=== PATIENT | male | born 1960 | race Caucasian/White ===

== ENCOUNTER 2016-12-01 19:09 | Inpatient (IN) | payer OTHER ==
[~2016-12-01] VITALS: Ht 175.3 cm; Wt 103.3 kg
[~2016-12-01 19:09] MED LIST: ACTOS15 MG PO; AMBIEN10 MG PO; AMPHETAMINE SAL20 MG PO; ASPIR-LOW81 MG PO; ASPIRIN325 MG PO; ATORVASTATIN CA40 MG PO; AZITHROMYCIN500 M1 PO; BACLOFEN10 MG PO; BENTYL20 MG PO; BUSPAR10 MG PO; CEFTIN500 MG PO; CLONIDINE HCL0.1 MG PO; CLOPIDOGREL75 MG PO; COUMADIN PO; COUMADIN6 MG PO; COZAAR50 MG PO; Coumadin Protocol PO; DELTASONE20 M1 PO; DESYREL100 MG PO; DIGOX250 MCG PO; DIGOXIN250 MCG PO; ECONAZOLE NITRA15 GM TP; ENDOCET 5-3251 EACH PO; EXALGO16 MG PO; Exalgo PO; FENTANYL1 EAC3 TD; FENTANYL1 EAC4 TD; FLEXERIL10 MG PO; FLOVENT 11120 INHALA IH; FUROSEMIDE40 MG PO; Flagyl PO; Flora-Q,Risaquad PO; GABAPENTIN300 MG PO; GABAPENTIN600 MG PO; GEMFIBROZIL600 MG PO; Glucophage PO; HUMALOG; HUMALOG100 UNIT/2 SC; HYDROCHLOROTHIA25 MG PO; Hydrodiuril,Oretic,E PO; JANUMET XR 50-1 EACH PO; JANUVIA100 MG PO; K-Dur PO; KEPPRA500 MG PO; KETAMINE TP; Kadian PO; Keppra PO; LANOXIN,DIGIT0.25 MG PO; LANTUS 3 M100 UNITS1 SC; LASIX40 MG PO; LEVETIRACETAM500 MG PO; LEVETIRACETAM750 MG PO; LIPITOR40 MG PO; LOPID600 MG PO; LOPRESSOR100 M1 PO; LOPRESSOR50 MG PO; LORTAB 5-325 M1 EACH PO; LOSARTAN POTASS50 MG PO; LOVAZA1 GM PO; Lanoxin,Digitek PO; Lopressor PO; METOPROLOL SUC200 MG PO; MORPHINE SULFAT60 MG PO; NAPROSYN500 MG PO; NEURONTIN300 MG PO; NEURONTIN600 MG PO; NIASPAN500 MG PO; NOVOLOG PE100 UNITS/ SC; Neurontin PO; OXYCODONE HCL15 MG PO; OXYCODONE30 MG PO; OXYCONTIN60 MG PO; PANTOPRAZOLE SO40 MG PO; PLAVIX75 MG PO; POTASSIUM CHLO10 ME4 PO; PRILOSEC20 MG PO; PROTONIX40 MG PO; Plavix PO; Pradaxa PO; SPIRIVA1 INHALATI IH; TRICOR145 MG PO; Toprol XL PO; ULTRAM50 MG PO; VITAMIN D31000 UNIT PO; Vitamin D, Drisdol PO; WARFARIN SODIUM2 MG PO; XARELTO20 MG PO; Xanax PO; ZESTRIL20 MG PO; ZOCOR20 MG PO; ZOFRAN4 MG PO; Zocor PO; [UNRECOGNIZED DRUG - OTHER]; oxyCODONE PO
[2016-12-01 20:27] LABS: HEMATOCRIT 44.7 % (38.0-50.0); MCH 21.6 PG (29.0-34.0); MCHC 30.6 G/DL (30.0-36.0); MCV 70.6 FL (86-99); RBC DIS.WIDTH-CV 23.2 % (11.8-14.6); RBC DIS.WIDTH-SD 56.8 % (39-53)
[2016-12-01 20:44] LABS: TROP-I INTERPRETATION NEGATIVE; TROPONIN-I < 0.01 ng/mL (0.0-0.30)
[2016-12-01 20:59] LABS: RED BLOOD COUNT 6.33 M/uL (4.00-5.50)
[2016-12-01 21:09] LABS: HEMATOLOGY COMMENT 1 SMEAR COMPATIBLE; MEAN PLAT.VOLUME 9.3 uM^3 (9.0-12.4); PLATELET COUNT 200 K/uL (156-360)
[2016-12-01 21:55] LABS: CHLORIDE 101 mEq/L (99-109); SODIUM 142 mEq/L (136-147)
[2016-12-01 21:57] LABS: GLUCOSE 135 mg/dL (70-99)
[2016-12-01 21:58] LABS: ANION GAP 13 MEQ/L (2-14)
[2016-12-01 22:01] LABS: GFR ESTIMATE (CALCULATED) > 59 mL/min/
[2016-12-01 22:02] LABS: UREA NITROGEN (BUN) 14 mg/dL (9-23)
[2016-12-01 22:30] LABS: TOTAL BILIRUBIN 1.2 mg/dL (0.0-1.0)
[2016-12-01 22:31] LABS: ALKALINE PHOSPHATASE 88 IU/L (3-129)
[2016-12-01 22:34] LABS: DIRECT BILIRUBIN 0.4 mg/dL (0.0-0.3)
[2016-12-01 22:35] LABS: D-DIMER ELISA 0.33 mg/L FEU (< 0.57)
[2016-12-01 22:53] LABS: HEMATOCRIT 42.9 % (38.0-50.0); MCH 21.5 PG (29.0-34.0); MCHC 30.3 G/DL (30.0-36.0); MCV 70.8 FL (86-99); MEAN PLAT.VOLUME 9.1 uM^3 (9.0-12.4); PLATELET COUNT 208 K/uL (156-360); RBC DIS.WIDTH-CV 22.8 % (11.8-14.6); RBC DIS.WIDTH-SD 56.1 % (39-53); RED BLOOD COUNT 6.06 M/uL (4.00-5.50); WHITE BLOOD COUNT 10.8 K/uL (4.1-10.2)
[2016-12-01 22:55] LABS: BASOPHIL COUNT 0.1 K/uL (0-0.1); EOSINOPHIL (%) 1.3 % (0-5); EOSINOPHIL COUNT 0.1 K/uL (0-0.3); IMMATURE GRANULOCYTE (%) 0.2 % (0.0-0.7); IMMATURE GRANULOCYTE COUNT 0.2 K/uL; LYMPHOCYTE COUNT 2.2 K/uL (1.0-2.8); MONOCYTE (%) 6.5 % (3-12); MONOCYTE COUNT 0.7 K/uL (0-0.8); NEUTROPHIL (%) 71.6 % (45-76); NEUTROPHIL COUNT 7.7 K/uL (1.8-6.4)
[2016-12-02] MEDS ORDERED: ATORVASTATIN CA80 MG PO (00:24)
[2016-12-02] MEDS ORDERED: OXYCODONE HCL5 MG PO (00:25)
[2016-12-02] MEDS ORDERED: COZAAR100 MG PO (00:25)
[2016-12-02] MEDS ORDERED: GABAPENTIN800 MG PO (00:26)
[2016-12-02] MEDS ORDERED: HUMALOG100 UNIT/2 SC (00:28)
[2016-12-02] MEDS ORDERED: PROTONIX20 MG PO (00:28)
[2016-12-02 02:26] VITALS: BP 143/84
[2016-12-02 03:31] LABS: TROP-I INTERPRETATION NEGATIVE; TROPONIN-I < 0.01 ng/mL (0.0-0.30)
[2016-12-02 04:00] VITALS: BP 136/82
[2016-12-02 06:19] LABS: INFLUENZA A VIRAL ANTIGEN NEGATIVE; INFLUENZA B VIRAL ANTIGEN NEGATIVE
[2016-12-02 08:13] VITALS: BP 135/85
[2016-12-02 09:31] LABS: CHLORIDE 97 mEq/L (99-109); POTASSIUM 3.4 mEq/L (3.7-5.4); SODIUM 141 mEq/L (136-147)
[2016-12-02 09:34] LABS: ANION GAP 14 MEQ/L (2-14)
[2016-12-02 09:37] LABS: GFR ESTIMATE (CALCULATED) > 59 mL/min/; GLUCOSE 94 mg/dL (70-99)
[2016-12-02 09:38] LABS: UREA NITROGEN (BUN) 13 mg/dL (9-23)
[2016-12-02 09:43] LABS: TROP-I INTERPRETATION NEGATIVE; TROPONIN-I < 0.01 ng/mL (0.0-0.30)
[2016-12-02 12:22] VITALS: BP 132/70
[2016-12-02 12:49] LABS: POINT-OF-CARE METER ID UU13113831
[2016-12-02 16:00] VITALS: BP 169/89
[2016-12-02 17:28] LABS: POINT-OF-CARE METER ID UU13113831
[2016-12-02 21:50] VITALS: BP 160/84
[2016-12-03 00:33] VITALS: BP 168/80
[2016-12-03 04:38] VITALS: BP 155/82
[2016-12-03 06:49] LABS: POINT-OF-CARE METER ID UU13113717
[2016-12-03 08:05] VITALS: BP 163/93
[2016-12-03 12:01] LABS: POINT-OF-CARE METER ID UU13113717
[2016-12-03 15:39] VITALS: BP 107/62
[2016-12-03 16:14] LABS: POINT-OF-CARE METER ID UU13113717
[2016-12-03 21:44] LABS: POINT-OF-CARE METER ID UU13113717
[2016-12-03 23:48] VITALS: BP 120/72
[2016-12-04 06:54] LABS: POINT-OF-CARE METER ID UU13113717
[2016-12-04 07:56] VITALS: BP 131/85
[2016-12-04 09:03] LABS: ANION GAP 8 MEQ/L (2-14); CHLORIDE 100 MEQ/L (99-109); GFR ESTIMATE (CALCULATED) > 59 mL/min/; GLUCOSE 89 mg/dL (70-99); POTASSIUM 3.9 MEQ/L (3.7-5.4); SAMPLE HEMOLYSIS CHECK 0; SAMPLE ICTERIC CHECK 0; SAMPLE LIPEMIA CHECK 0; SODIUM 139 MEQ/L (136-147)
[2016-12-04 09:07] LABS: HEMATOCRIT 48.5 % (38.0-50.0); MCH 22.4 PG (29.0-34.0); MCHC 30.7 G/DL (30.0-36.0); MCV 72.9 FL (86-99); RBC DIS.WIDTH-CV 22.4 % (11.8-14.6); RBC DIS.WIDTH-SD 56.3 % (39-53); RED BLOOD COUNT 6.65 M/uL (4.00-5.50); WHITE BLOOD COUNT 10.8 K/uL (4.1-10.2)
[2016-12-04 09:12] LABS: MEAN PLAT.VOLUME 9.4 uM^3 (9.0-12.4); PLATELET COUNT 231 K/uL (156-360)
[2016-12-04 09:31] LABS: UREA NITROGEN (BUN) 26 mg/dL (9-23)
[2016-12-04 12:01] LABS: POINT-OF-CARE METER ID UU13113717
[2016-12-04 16:58] VITALS: BP 105/57
[2016-12-04 22:04] LABS: POINT-OF-CARE METER ID UU14149397
[2016-12-05 00:19] VITALS: BP 142/74
[2016-12-05 05:53] LABS: ANION GAP 13 MEQ/L (2-14); CHLORIDE 97 MEQ/L (99-109); GFR ESTIMATE (CALCULATED) > 59 mL/min/; SAMPLE HEMOLYSIS CHECK 0; SAMPLE ICTERIC CHECK 0; SAMPLE LIPEMIA CHECK 0; SODIUM 137 MEQ/L (136-147); UREA NITROGEN (BUN) 29 mg/dL (9-23)
[2016-12-05 06:19] LABS: GLUCOSE 157 mg/dL (70-99)
[2016-12-05 06:38] LABS: HEMATOCRIT 50.8 % (38.0-50.0); MCH 21.5 PG (29.0-34.0); MCHC 29.7 G/DL (30.0-36.0); MCV 72.5 FL (86-99); RBC DIS.WIDTH-CV 22.3 % (11.8-14.6); RED BLOOD COUNT 7.01 M/uL (4.00-5.50); WHITE BLOOD COUNT 12.6 K/uL (4.1-10.2)
[2016-12-05 07:14] LABS: PLATELET COUNT UNABLE TO REPORT K/uL (156-360)
[2016-12-05 08:16] VITALS: BP 117/77
[2016-12-05 11:58] LABS: POINT-OF-CARE METER ID UU14149397
[2016-12-05 16:30] VITALS: BP 110/67
[2016-12-05 16:31] LABS: POINT-OF-CARE METER ID UU14149397
[2016-12-05 20:26] VITALS: BP 105/76
[2016-12-05 22:06] LABS: POINT-OF-CARE METER ID UU14149397
[2016-12-05 23:24] VITALS: BP 100/57
[2016-12-06 04:25] VITALS: BP 106/69
[2016-12-06 06:22] LABS: ANION GAP 10 MEQ/L (2-14); CHLORIDE 97 MEQ/L (99-109); GFR ESTIMATE (CALCULATED) > 59 mL/min/; GLUCOSE 126 mg/dL (70-99); MAGNESIUM 1.8 mg/dl (1.3-2.7); POTASSIUM 3.5 MEQ/L (3.7-5.4); SAMPLE HEMOLYSIS CHECK 0; SAMPLE ICTERIC CHECK 0; SAMPLE LIPEMIA CHECK 0; SODIUM 139 MEQ/L (136-147); UREA NITROGEN (BUN) 37 mg/dL (9-23)
[2016-12-06 06:48] LABS: POINT-OF-CARE METER ID UU14149397
[2016-12-06 07:14] LABS: EOSINOPHIL (%) 0.4 % (0-5); EOSINOPHIL COUNT 0.1 K/uL (0-0.3); HEMATOCRIT 48.9 % (38.0-50.0); IMMATURE GRANULOCYTE (%) 0.3 % (0.0-0.7); LYMPHOCYTE COUNT 3.5 K/uL (1.0-2.8); MCH 22.3 PG (29.0-34.0); MCHC 30.5 G/DL (30.0-36.0); MCV 73.1 FL (86-99); MONOCYTE (%) 6.3 % (3-12); MONOCYTE COUNT 0.8 K/uL (0-0.8); NEUTROPHIL (%) 65.5 % (45-76); NEUTROPHIL COUNT 8.4 K/uL (1.8-6.4); RBC DIS.WIDTH-CV 22.6 % (11.8-14.6); RBC DIS.WIDTH-SD 57.3 % (39-53); RED BLOOD COUNT 6.69 M/uL (4.00-5.50); WHITE BLOOD COUNT 12.8 K/uL (4.1-10.2)
[2016-12-06 07:19] VITALS: BP 120/68
[2016-12-06 07:35] LABS: PLAT.SUFFICIENCY ADEQUATE; PLATELET COUNT 211 K/uL (156-360); USER ID SDF
[2016-12-06 11:33] VITALS: BP 97/54
[2016-12-06 11:42] LABS: POINT-OF-CARE METER ID UU13113717
[2016-12-06] MEDS ORDERED: FUROSEMIDE40 MG PO (13:01)
[2016-12-06] MEDS ORDERED: ISORDIL TITRADOS5 MG PO (13:36)
== END 2016-12-06 14:25 | disposition home health service (06) | DRG 189 ==
LOC: EME 19:09 → EDOF 12-02 00:34 → 5WEST 12-02 02:05 → 3EAST 12-02 11:59
PROVIDERS: Emergency Medicine; Hospitalist; Internal Medicine; Physician Assistant; Student in an Organized Health Care Education/Training Program
DX: J96.01 Acute respiratory failure with hypoxia (principal); J44.1 Chronic obstructive pulmonary disease with (acute) exacerbation; I50.9 Heart failure, unspecified; I48.2 Chronic atrial fibrillation; I10 Essential (primary) hypertension; E11.9 Type 2 diabetes mellitus without complications; I25.10 Atherosclerotic heart disease of native coronary artery without angina pectoris; I25.82 Chronic total occlusion of coronary artery; E66.01 Morbid (severe) obesity due to excess calories; E78.5 Hyperlipidemia, unspecified; I73.9 Peripheral vascular disease, unspecified; E78.00 Pure hypercholesterolemia, unspecified; I51.7 Cardiomegaly; K21.9 Gastro-esophageal reflux disease without esophagitis; E87.70 Fluid overload, unspecified; F17.210 Nicotine dependence, cigarettes, uncomplicated; Z79.02 Long term (current) use of antithrombotics/antiplatelets; Z68.34 Body mass index [BMI] 34.0-34.9, adult; Z79.4 Long term (current) use of insulin; T82.857D Stenosis of other cardiac prosthetic devices, implants and grafts, subsequent encounter; Z98.61 Coronary angioplasty status; Z80.9 Family history of malignant neoplasm, unspecified
CPT/HCPCS: 71020; 80048; 80076; 82948; 83605; 83735; 83880; 84100; 84484; 85025; 85027; 85379; 87040; 87502; 93005; 94640; 94640 76; 94799; 99202; 99281; 99285; J1815; J1940; J2920; J7512

== ENCOUNTER 2017-01-20 07:41 | Inpatient (IN) | payer OTHER ==
[~2017-01-20] VITALS: Ht 175.3 cm; Wt 103.3 kg
[~2017-01-20 07:41] MED LIST changes: +ATORVASTATIN CA80 MG PO; +COZAAR100 MG PO; +GABAPENTIN800 MG PO; +ISORDIL TITRADOS5 MG PO; +OXYCODONE HCL5 MG PO; +PROTONIX20 MG PO
[2017-01-20] MEDS ORDERED: FENTANYL1 EAC1 TD (07:50)
[2017-01-20] MEDS ORDERED: LOSARTAN POTAS100 MG PO ×2 (07:53→13:43)
[2017-01-20 10:00] LABS: HEMATOCRIT 42.2 % (38.0-50.0); MCHC 30.8 G/DL (30.0-36.0); MCV 71.3 FL (86-99); MEAN PLAT.VOLUME 9.1 uM^3 (9.0-12.4); PLATELET COUNT 213 K/uL (156-360); RBC DIS.WIDTH-CV 22.9 % (11.8-14.6); RBC DIS.WIDTH-SD 57.6 % (39-53); RED BLOOD COUNT 5.92 M/uL (4.00-5.50); WHITE BLOOD COUNT 13.7 K/uL (4.1-10.2)
[2017-01-20 10:11] LABS: CHLORIDE 101 mEq/L (99-109); POTASSIUM 4.6 mEq/L (3.7-5.4); SODIUM 139 mEq/L (136-147)
[2017-01-20 10:13] LABS: GLUCOSE 153 mg/dL (70-99)
[2017-01-20 10:14] LABS: ANION GAP 10 MEQ/L (2-14)
[2017-01-20 10:15] LABS: TOTAL BILIRUBIN 1.3 mg/dL (0.0-1.0)
[2017-01-20 10:16] LABS: D-DIMER ELISA 0.55 mg/L FEU (< 0.57); INTER. NORMALIZED RATIO 1.3; PROTHROMBIN TIME 13.3 (9.2-11.2)
[2017-01-20 10:17] LABS: ALKALINE PHOSPHATASE 95 IU/L (3-129); GFR ESTIMATE (CALCULATED) > 59 mL/min/
[2017-01-20 10:18] LABS: UREA NITROGEN (BUN) 17 mg/dL (9-23)
[2017-01-20 10:43] LABS: TROP-I INTERPRETATION NEGATIVE; TROPONIN-I < 0.01 ng/mL (0.0-0.30)
[2017-01-20 11:02] VITALS: BP 179/110
[2017-01-20 11:31] VITALS: BP 177/102
[2017-01-20 11:39] LABS: ADD MIUA? NO; BILIRUBIN NEGATIVE; BLOOD NEGATIVE; COLOR COLORLESS ((YELLOW)); GLUCOSE (STRIP) NEGATIVE; KETONES NEGATIVE; LEUKOCYTES NEGATIVE; NITRITE NEGATIVE; PROTEIN (STRIP) NEGATIVE; SPECIFIC GRAVITY 1.006 (1.000-1.030); UROBILINOGEN 0.2 MG/DL (0.2-1.0)
[2017-01-20 12:01] VITALS: BP 156/114
[2017-01-20] MEDS ORDERED: LASIX40 MG PO (12:05)
[2017-01-20] MEDS ORDERED: K-DUR20 MEQ PO (12:07)
[2017-01-20] MEDS ORDERED: LOVAZA1 GM PO (12:10)
[2017-01-20 13:20] VITALS: BP 168/82
[2017-01-20 15:36] LABS: TROP-I INTERPRETATION NEGATIVE; TROPONIN-I < 0.01 ng/mL (0.0-0.30)
[2017-01-20 16:00] VITALS: BP 189/72
[2017-01-20 21:00] VITALS: BP 153/94
[2017-01-20 21:34] LABS: TROP-I INTERPRETATION NEGATIVE; TROPONIN-I 0.01 ng/mL (0.0-0.30)
[2017-01-20 21:51] LABS: Estimated Average Glucose 157 mg/dL (70-123); HEMOGLOBIN A1c (GLYCOHEMOGLOB) 7.1 % HGB (Below 5.7)
[2017-01-21 00:38] VITALS: BP 145/87
[2017-01-21 07:15] LABS: TROP-I INTERPRETATION NEGATIVE; TROPONIN-I 0.01 ng/mL (0.0-0.30)
[2017-01-21 07:43] LABS: HEMATOCRIT 46.1 % (38.0-50.0); MCH 21.2 PG (29.0-34.0); MCHC 29.1 G/DL (30.0-36.0); MCV 72.9 FL (86-99); MEAN PLAT.VOLUME 9.5 uM^3 (9.0-12.4); PLATELET COUNT 249 K/uL (156-360); RBC DIS.WIDTH-CV 22.8 % (11.8-14.6); RBC DIS.WIDTH-SD 57.6 % (39-53); RED BLOOD COUNT 6.32 M/uL (4.00-5.50); WHITE BLOOD COUNT 10.8 K/uL (4.1-10.2)
[2017-01-21 09:45] VITALS: BP 167/98
[2017-01-21 12:40] VITALS: BP 163/84
[2017-01-21] MEDS ORDERED: IMDUR30 MG PO (16:37)
[2017-01-21 17:53] VITALS: BP 148/82
== END 2017-01-21 19:27 | disposition home or self-care (01) | DRG 303 ==
LOC: EME → EDBD 07:41 → EME 07:41 → 4EAST 11:18 → EDOF 11:18 → 4EAST 13:05
PROVIDERS: Internal Medicine; Internal Medicine Cardiovascular Disease; Physician Assistant Medical
DX: I25.110 Atherosclerotic heart disease of native coronary artery with unstable angina pectoris (principal); R94.31 Abnormal electrocardiogram [ECG] [EKG]; I11.0 Hypertensive heart disease with heart failure; I50.9 Heart failure, unspecified; I25.82 Chronic total occlusion of coronary artery; E11.9 Type 2 diabetes mellitus without complications; E78.5 Hyperlipidemia, unspecified; K21.9 Gastro-esophageal reflux disease without esophagitis; I48.2 Chronic atrial fibrillation; I27.2 Other secondary pulmonary hypertension; I35.0 Nonrheumatic aortic (valve) stenosis; I73.9 Peripheral vascular disease, unspecified; G47.30 Sleep apnea, unspecified; E66.9 Obesity, unspecified; F17.210 Nicotine dependence, cigarettes, uncomplicated; Z91.14 Patient's other noncompliance with medication regimen; Z68.34 Body mass index [BMI] 34.0-34.9, adult; Z79.4 Long term (current) use of insulin; Z79.01 Long term (current) use of anticoagulants; Z79.02 Long term (current) use of antithrombotics/antiplatelets; Z86.73 Personal history of transient ischemic attack (TIA), and cerebral infarction without residual deficits; Z95.5 Presence of coronary angioplasty implant and graft
CPT/HCPCS: 71020; 80053; 81003; 82948; 83036; 83880; 84484; 85027; 85379; 85610; 85730; 93005; 93306; 93971; 94640; 94640 76; 94760; 99281; 99284; J1815; J1940

== ENCOUNTER 2017-06-20 09:11 | Inpatient (IN) | payer OTHER ==
[~2017-06-20] VITALS: Ht 175.3 cm; Wt 110.2 kg
[~2017-06-20 09:11] MED LIST changes: +CATAPRES0.1 MG PO; +DURAGESIC50 MCG TD; +FENTANYL1 EAC1 TD; +IMDUR30 MG PO; +K-DUR20 MEQ PO; +KEPPRA750 MG PO; +LOSARTAN POTAS100 MG PO; +OXYCODONE HCL10 MG PO; +PROCARDIA XL30 MG PO; +TYLENOL EXTRA500 MG PO
[2017-06-20 09:39] VITALS: BP 126/82
[2017-06-20 10:03] LABS: POINT-OF-CARE METER ID UU13113694
[2017-06-20 14:50] LABS: POINT-OF-CARE METER ID UU13113675; POINT-OF-CARE USER ID 515036437
[2017-06-20 17:49] VITALS: BP 157/93
[2017-06-20 18:26] LABS: POINT-OF-CARE METER ID UU13113781
[2017-06-20 20:09] VITALS: BP 167/101
[2017-06-20 20:10] LABS: TROP-I INTERPRETATION NEGATIVE; TROPONIN-I < 0.01 ng/mL (0.0-0.30)
[2017-06-20 21:11] LABS: POINT-OF-CARE METER ID UU13113781
[2017-06-20 23:38] VITALS: BP 131/71
[2017-06-21 00:14] LABS: TROP-I INTERPRETATION NEGATIVE; TROPONIN-I < 0.01 ng/mL (0.0-0.30)
[2017-06-21 04:00] VITALS: BP 114/78
[2017-06-21 05:55] LABS: TROP-I INTERPRETATION NEGATIVE; TROPONIN-I < 0.01 ng/mL (0.0-0.30)
[2017-06-21 07:42] VITALS: BP 134/81
[2017-06-21 11:45] VITALS: BP 137/79
[2017-06-21 17:07] VITALS: BP 132/70
[2017-06-21 20:00] VITALS: BP 138/83
[2017-06-21 20:58] LABS: POINT-OF-CARE METER ID UU13113803
[2017-06-21 23:55] VITALS: BP 103/59
[2017-06-22 04:00] VITALS: BP 127/72
[2017-06-22 05:59] LABS: HEMATOCRIT 40.9 % (38.0-50.0); MCH 20.5 PG (29.0-34.0); MCHC 29.3 G/DL (30.0-36.0); MEAN PLAT.VOLUME 9.2 uM^3 (9.0-12.4); PLATELET COUNT 224 K/uL (156-360); RBC DIS.WIDTH-CV 23.5 % (11.8-14.6); RBC DIS.WIDTH-SD 55.1 % (39-53); RED BLOOD COUNT 5.84 M/uL (4.00-5.50); WHITE BLOOD COUNT 13.9 K/uL (4.1-10.2)
[2017-06-22 06:10] LABS: ANION GAP 9 MEQ/L (2-14); CHLORIDE 97 MEQ/L (99-109); GFR ESTIMATE (CALCULATED) > 59 mL/min/; GLUCOSE 103 mg/dL (70-99); POTASSIUM 3.3 MEQ/L (3.7-5.4); SAMPLE HEMOLYSIS CHECK 0; SAMPLE ICTERIC CHECK 0; SAMPLE LIPEMIA CHECK 0; SODIUM 142 MEQ/L (136-147); UREA NITROGEN (BUN) 8 mg/dL (9-23)
[2017-06-22 09:00] VITALS: BP 129/62
[2017-06-22 12:00] VITALS: BP 132/85
[2017-06-22 16:59] VITALS: BP 125/80
[2017-06-22 19:33] VITALS: BP 134/75
[2017-06-22 23:11] VITALS: BP 118/76
[2017-06-23 04:15] VITALS: BP 112/60
[2017-06-23 05:47] LABS: ANION GAP 8 MEQ/L (2-14); CHLORIDE 99 MEQ/L (99-109); GFR ESTIMATE (CALCULATED) > 59 mL/min/; GLUCOSE 95 mg/dL (70-99); MAGNESIUM 1.1 mg/dl (1.3-2.7); SAMPLE HEMOLYSIS CHECK 0; SAMPLE ICTERIC CHECK 0; SAMPLE LIPEMIA CHECK 0; SODIUM 143 MEQ/L (136-147); UREA NITROGEN (BUN) 12 mg/dL (9-23)
[2017-06-23 08:21] LABS: POINT-OF-CARE USER ID ENVKC36
[2017-06-23 11:50] LABS: POINT-OF-CARE METER ID UU13113698; POINT-OF-CARE USER ID ENVKC36
[2017-06-23 16:00] VITALS: BP 129/87
[2017-06-23 17:00] LABS: POINT-OF-CARE USER ID ENVKC36
[2017-06-23 19:16] VITALS: BP 118/69
[2017-06-23 23:04] VITALS: BP 134/76
[2017-06-24 04:02] VITALS: BP 157/96
[2017-06-24 05:11] LABS: HEMATOCRIT 43.4 % (38.0-50.0); MCH 19.8 PG (29.0-34.0); MCHC 28.3 G/DL (30.0-36.0); MCV 69.8 FL (86-99); MEAN PLAT.VOLUME 9.6 uM^3 (9.0-12.4); PLATELET COUNT 247 K/uL (156-360); RBC DIS.WIDTH-SD 54.1 % (39-53); RED BLOOD COUNT 6.22 M/uL (4.00-5.50); WHITE BLOOD COUNT 10.7 K/uL (4.1-10.2)
[2017-06-24 05:13] LABS: CHLORIDE 97 mEq/L (99-109); POTASSIUM 3.9 mEq/L (3.7-5.4); SODIUM 142 mEq/L (136-147)
[2017-06-24 05:14] LABS: MAGNESIUM 1.3 mg/dL (1.3-2.7)
[2017-06-24 05:15] LABS: GLUCOSE 122 mg/dL (70-99)
[2017-06-24 05:17] LABS: ANION GAP 12 MEQ/L (2-14)
[2017-06-24 05:19] LABS: GFR ESTIMATE (CALCULATED) > 59 mL/min/
[2017-06-24 05:20] LABS: UREA NITROGEN (BUN) 10 mg/dL (9-23)
[2017-06-24 07:55] LABS: POINT-OF-CARE METER ID UU13113781
[2017-06-24 09:00] VITALS: BP 133/73
[2017-06-24 12:00] VITALS: BP 134/85
[2017-06-24 16:00] VITALS: BP 136/87
[2017-06-24 17:37] LABS: POINT-OF-CARE METER ID UU13113781
[2017-06-24 19:30] VITALS: BP 130/75
[2017-06-24 21:06] LABS: POINT-OF-CARE METER ID UU13113803
[2017-06-24 23:00] VITALS: BP 131/82
[2017-06-25 03:00] VITALS: BP 108/72
[2017-06-25 06:48] LABS: ANION GAP 9 MEQ/L (2-14); CHLORIDE 98 MEQ/L (99-109); GFR ESTIMATE (CALCULATED) > 59 mL/min/; GLUCOSE 102 mg/dL (70-99); POTASSIUM 4.4 MEQ/L (3.7-5.4); SAMPLE HEMOLYSIS CHECK 0; SAMPLE ICTERIC CHECK 0; SAMPLE LIPEMIA CHECK 0; SODIUM 141 MEQ/L (136-147); UREA NITROGEN (BUN) 11 mg/dL (9-23)
[2017-06-25 08:22] VITALS: BP 157/91
== END 2017-06-25 13:13 | disposition home health service (06) | DRG 987 ==
LOC: SDC 09:11 → ENRESERV 14:22 → 4EAST 14:33 → 2SOUTH 14:33 → ENRESERV 14:37 → SDC 15:59 → 4EAST 16:28
PROVIDERS: Internal Medicine Cardiovascular Disease; Physician Assistant Medical; Surgery
PROC: 0FT44ZZ Resection of Gallbladder, Percutaneous Endoscopic Approach (ICD-10-PCS; principal; 2017-06-20)
DX: I48.91 Unspecified atrial fibrillation (principal); K80.12 Calculus of gallbladder with acute and chronic cholecystitis without obstruction; J96.01 Acute respiratory failure with hypoxia; J44.1 Chronic obstructive pulmonary disease with (acute) exacerbation; J44.0 Chronic obstructive pulmonary disease with (acute) lower respiratory infection; J18.9 Pneumonia, unspecified organism; J98.11 Atelectasis; E87.70 Fluid overload, unspecified; I25.10 Atherosclerotic heart disease of native coronary artery without angina pectoris; I27.2 Other secondary pulmonary hypertension; I42.9 Cardiomyopathy, unspecified; G47.33 Obstructive sleep apnea (adult) (pediatric); I10 Essential (primary) hypertension; E11.42 Type 2 diabetes mellitus with diabetic polyneuropathy; I08.0 Rheumatic disorders of both mitral and aortic valves; E78.00 Pure hypercholesterolemia, unspecified; E78.5 Hyperlipidemia, unspecified; K21.9 Gastro-esophageal reflux disease without esophagitis; F41.9 Anxiety disorder, unspecified; F32.9 Major depressive disorder, single episode, unspecified; F17.200 Nicotine dependence, unspecified, uncomplicated; E66.9 Obesity, unspecified; Z68.37 Body mass index [BMI] 37.0-37.9, adult; Z79.01 Long term (current) use of anticoagulants; Z79.02 Long term (current) use of antithrombotics/antiplatelets; Z86.19 Personal history of other infectious and parasitic diseases; Z86.73 Personal history of transient ischemic attack (TIA), and cerebral infarction without residual deficits; Z95.5 Presence of coronary angioplasty implant and graft; Z98.1 Arthrodesis status; Z79.4 Long term (current) use of insulin
CPT/HCPCS: 36415; 71010; 71020; 80048; 82948; 83735; 84484; 85027; 85610 GA; 88304; 94010; 94640; 94640 76; 94760; 94799; 99202; J0330; J1170; J1644; J1815; J1885; J1940; J2250; J2405; J2710; J3010; J3475; S0028

== ENCOUNTER 2017-12-17 11:52 | Emergency (ER) | payer OTHER ==
[~2017-12-17] VITALS: Ht 175.3 cm; Wt 125.5 kg
[2017-12-17 13:14] LABS: CHLORIDE 100 mEq/L (99-109); POTASSIUM 3.9 mEq/L (3.7-5.4); SODIUM 138 mEq/L (136-147)
[2017-12-17 13:16] LABS: GLUCOSE 126 mg/dL (70-99); TROP-I INTERPRETATION NEGATIVE; TROPONIN-I 0.01 ng/mL (0.0-0.30)
[2017-12-17 13:20] LABS: CREATININE 0.7 mg/dL (0.6-1.3); GFR ESTIMATE (CALCULATED) > 59 mL/min/ (58.99-99999)
[2017-12-17 13:21] LABS: MAGNESIUM 1.2 mg/dL (1.3-2.7); UREA NITROGEN (BUN) 16 mg/dL (9-23)
[2017-12-17 13:22] LABS: HEMATOCRIT 35.7 % (38.0-50.0); HEMOGLOBIN 9.3 G/DL (12.5-16.6); MCH 17.4 PG (29.0-34.0); MCHC 26.1 G/DL (30.0-36.0); MCV 66.9 FL (86-99); NRBC (%) 0.4 /100 WBC (0-0); RBC DIS.WIDTH-CV 26.1 % (11.8-14.6); RBC DIS.WIDTH-SD 59.7 % (39-53); RED BLOOD COUNT 5.34 M/uL (4.00-5.50); WHITE BLOOD COUNT 9.4 K/uL (4.1-10.2)
[2017-12-17 13:51] LABS: PLAT.SUFFICIENCY ADEQUATE; PLATELET COUNT 208 K/uL (156-360)
[2017-12-17] MEDS ORDERED: POTASSIUM CHLO20 ME1 PO (14:02)
[2017-12-17] MEDS ORDERED: LASIX40 MG PO (14:02)
[2017-12-17 15:56] VITALS: BP 139/90
== END 2017-12-17 16:09 | disposition home or self-care (01) ==
LOC: EME 11:52
DX: J44.1 Chronic obstructive pulmonary disease with (acute) exacerbation (principal); I50.9 Heart failure, unspecified; E11.9 Type 2 diabetes mellitus without complications; Z79.4 Long term (current) use of insulin; E78.5 Hyperlipidemia, unspecified; F17.200 Nicotine dependence, unspecified, uncomplicated; Z86.73 Personal history of transient ischemic attack (TIA), and cerebral infarction without residual deficits; Z95.5 Presence of coronary angioplasty implant and graft; Z90.49 Acquired absence of other specified parts of digestive tract
CPT/HCPCS: 71046; 80048; 81003; 83735; 83880; 84484; 85027; 93005; 94640; 99281; 99284